=== PATIENT | female | born 1970 | race Caucasian/White ===

== ENCOUNTER 2018-04-03 12:10 | Emergency (ER) | payer OTHER, SELFPAY ==
[2018-04-03 12:11] VITALS: BP 141/103; PULSE 92; RESP 18; TEMP 37; O2SAT 100; BMI 29.5
[2018-04-03 12:23] VITALS: O2SAT 99
--- NOTE | 2018-04-03 12:48 | EKG12_ITS ---
Test Reason : CP Blood Pressure : / mmHG Vent. Rate : 097 BPM Atrial Rate : 097 BPM P-R Int : 128 ms QRS Dur : 080 ms QT Int : 372 ms P-R-T Axes : 059 055 060 degrees QTc Int : 472 ms Poor data quality, interpretation may be adversely affected Normal sinus rhythm Low voltage QRS Borderline ECG Confirmed by ANNALEE BRADY, SABIHA ([id number]), scientific editor AUGUSTA GRANADOS ([id number] on 04/05/2018 1:40:50 PM Referred By: Confirmed By:SABIHA MANTILLA MD
--- NOTE | 2018-04-03 12:57 | NURSING ---
NO LW OR POA
[2018-04-03 13:03] VITALS: PULSE 76; RESP 18
[2018-04-03] MEDS: Albuterol 2.5 MG/3 ML VIAL.NEB. INHALATION (13:03)
--- NOTE | 2018-04-03 13:20 | RAD_ITS ---
STUDY: X-RAY CHEST REASON FOR EXAM: Female, 47 years old. Shortness of breath. Anxiety. TECHNIQUE: PA and lateral views of the chest. COMPARISON: None. FINDINGS: EKG electrodes are seen. The lungs are clear and expanded. Scattered calcified granulomas. There is no demonstrated pleural abnormality. Normal size heart. Normal mediastinum and regan. Normal visualized pulmonary arteries. Normal visualized aortic arch and descending thoracic aorta. Normal visualized thoracic spine. Normal visualized ribs, clavicles, and shoulders. There is no demonstrated abnormality of the visualized soft tissue structures of the upper abdomen. RAD/Chest PA and Lateral IMPRESSION: Normal x-ray examination of the chest. Electronically Signed: Xavier Bailey MD at 13:49 EDT Tel [phone], Service support ,
[2018-04-03 13:27] LABS: Absolute Lymphocyte Count 1.79 X10^3/ul (0.83-4.51); Basophil# 0.02 X10^3/uL; Basophil% 0.4 % (0-1); Eosinophil# 0.09 X10^3/uL; Eosinophils% 1.7 % (0-5); Hematocrit 40.3 % (37-47); Hemoglobin 13.7 g/dl (12.0-15.0); Lymphocyte # 1.79 X10^3/ul (4.0); Lymphocyte % 33.8 % (19-41); Mean Corpuscular Volume 88.2 fL (81-99); Mean Platelet Vol. 11.4 fl (6.2-12.0); Monocyte# 0.39 X10^3/uL; Monocyte% 7.4 % (0-10); Neutrophil % 56.5 % (47-70); Platelet Count 214 K/mm3 (150-450); RBC Distribution Width CV 13.2 % (11.6-14.6); RBC Distribution Width SD 42.6 fl (35.1-43.9); Red Blood Count 4.57 M/mm3 (4.2-5.4); White Blood Count 5.3 K/mm3 (4.4-11.0)
[2018-04-03 13:30] LABS: POSITIVE COUNT NO; POSITIVE DIFFERENTIAL NO; POSITIVE MORPHOLOGY NO
[2018-04-03] MEDS: 0.9% Normal Saline 1,000 ML 999 ML IV (13:49)
[2018-04-03 14:01] LABS: D-Dimer Quantitative (DVT/PE) 0.36 FEU/ug/m (0.27-0.49)
[2018-04-03 14:03] LABS: Anion Gap 9 (5-15); BUN 10 mg/dL (7-18); BUN/Creat Ratio 12.8 RATIO (10-20); Calcium,Total 8.8 mg/dL (8.5-10.1); Chloride 106 mmol/L (98-107); Creatinine, Serum 0.78 mg/dL (0.55-1.02); EST Glomerular Filtration Rate 83 mL/min (>60); Est Glom Filt Rate - Afr Amer 101 mL/min (>60); Glucose 95 mg/dL (74-106); Potassium 3.6 mmol/L (3.5-5.1); Sodium Level 140 mmol/L (136-145)
[2018-04-03 14:15] VITALS: PULSE 75; RESP 12; O2SAT 99
[2018-04-03] MEDS: LORazepam 2 MG/ML Syringe 0.5 MG IV (14:38)
--- NOTE | 2018-04-03 14:58 | ED.VISSUMM ---
- ER Visit Summary Date of Service: 04/03/18 Chief Complaint: Shortness of breath History of Present Illness: The patient is a 47 F who states that she had a headache last night and then she could not catch her breath then her chest started to get heavy and then her legs were aching. She felt very panicky today she went to her doctor's office and was sent here. She does note some nasal drainage. She is a smoker. She notes chronic paresthesias of the bilateral hands and legs. Physical Examination: Afebrile vital signs are stable Gen: Well-nourished well-developed Head: Normocephalic atraumatic Eyes: Perrl EOMI ENT: TMs clear no rhinorrhea moist mucous membranes Neck: Supple no lymphadenopathy no JVD nontender CVS: Regular rate rhythm no murmurs normal S1-S2 Respiratory: No distress clear to auscultation bilaterally chest nontender Abdomen: Soft nontender nondistended normal bowel sounds no masses Back: Nontender Extremity: Nontender no edema Skin: Normal color no rash Neuro: alert orientated ?3 CN II-XII intact normal strength sensation reflexes gait cerebellar Psych: Anxious Test Results: EKG sinus rhythm at a rate of 97. CBC chemistries troponin negative. D-dimer 0.36. Chest x-ray negative. Emergency Department Course and Treatment: Patient received an albuterol aerosol. This did not really help her. She also received Ativan which did. His most likely anxiety. She will follow-up with her doctor. Impression: 1. Dyspnea 2. Anxiety This note was generated with [employer] dictation software. It may contain incorrect words, spelling, and punctuation that were not noted in review of the chart prior to signing ED Disposition - Plan for ED Patient: Disposition: Home or Assisted Living Chief Complaint: Shortness of Breath Instructions: Understanding Generalized Anxiety Disorder (LUISITO), ED Dyspnea Shortness of Breath Referrals: Gabriela Whiteside MD [Primary Care Provider] - 1 Week
[2018-04-03 15:16] VITALS: BP 116/64; PULSE 76; RESP 16; O2SAT 99
--- NOTE | 2018-04-03 15:17 | ED.RN ---
REVIEWED D/C INSTRUCTIONS, FOLLOW UP CARE, AND S/S THAT WOULD WARRANT A RETURN TO THE ED WITH PT. PT VERBALIZED AN UNDERSTANDING AND DENIES FURTHER QUESTIONS FOR THIS RN. PT SKIN P/W/D, RESP EVEN AND UNLABORED, PT A&O X 3, NO DISTRESS NOTED. PT AMBULATED OUT OF ED, GAIT STEADY.
--- NOTE | 2018-04-04 16:09 | CM.ED ---
ED CALLBACK: Follow-up call placed to patient. Patient states that she is feeling completely better today. Patient states, Everyone was very helpful there. She denies needs, questions, concerns.
== END 2018-04-03 15:18 | disposition home or self-care (01) ==
PROVIDERS: Emergency Provider Emergency Medicine; Family Provider Internal Medicine; PCP Internal Medicine
DX: R06.00 Dyspnea, unspecified (principal); F41.9 Anxiety disorder, unspecified; F17.200 Nicotine dependence, unspecified, uncomplicated
CPT/HCPCS: 71046; 80048; 84484; 85025; 85379; 93005; 94640; 96361; 96374; 99285; J7030; A4216

== ENCOUNTER 2022-04-09 00:46 | Emergency (ER) | payer OTHER, SELFPAY ==
[2022-04-09 00:47] VITALS: BP 141/118; PULSE 80; RESP 18; TEMP 36.1; O2SAT 99; BMI 32.3
--- NOTE | 2022-04-09 00:56 | CT_ITS ---
STUDY: CT BRAIN WITHOUT CONTRAST REASON FOR EXAM: Female, 51 years old. Head injury RADIATION DOSAGE (If Supplied By Facility): CTDIvol = ( 44.99 ) mGy, DLP = ( 812.98 ) mGycm TECHNIQUE: Transaxial CT imaging of the brain was performed without administration of intravenous contrast material. Individualized dose optimization techniques were used for this CT. COMPARISON: No relevant priors. FINDINGS: Posterior right scalp laceration, hematoma, and small soft tissue gas. Normal calvarium. Normal size ventricles and extra-axial spaces for the patient''s age. Normal white matter tracts of the cerebral hemispheres. Normal basal ganglia and thalami. Normal brainstem. Normal cerebellum. There is no intracranial hemorrhage. There are no findings of an acute ischemic infarction. Normal visualized paranasal sinuses. CT/Brain/Head without Contrast IMPRESSION: No acute abnormal intracranial finding. Posterior right scalp laceration. Electronically Signed: Keshav Capellan MD at 1:50 EDT ,
--- NOTE | 2022-04-09 00:57 | EX.ED.DYSGE1 ---
HPI History of Present Illness Chief Complaint: Head Injury Detail of Chief Complaint: Syncope and scalp laceration Informant: patient Narrative Narrative: Patient presents to the emergency department after syncopal episode this evening. Patient states that she had abdominal cramping and went to sit on the toilet. Patient recalls being sweaty and clammy. She got up and splashed some water on her face and then walked to the laundry room and passed out. Patient did hit the back of her head on a post that was covered in blood. Patient not on blood thinners. Her abdominal discomfort is now resolved. Patient complains of a headache. Unsure of her last tetanus. PFSH PFS Medical History no medical history Home Medications citalopram 40 mg tablet 20 mg PO DAILY 04/03/18 [History Last Taken Unknown] hydroxyzine HCl 10 mg tablet 25 mg PO DAILY 04/03/18 [History Last Taken Unknown] lisinopril 5 mg tablet 5 tab PO DAILY 04/03/18 [History Last Taken Unknown] lorazepam 1 mg tablet 1 mg PO BID PRN Anxiety 04/03/18 [History Last Taken Unknown] Allergy/AdvReac Type Severity Reaction Status Date / Time No Known Allergies Allergy Verified 04/09/22 00:49 Social History (Updated 06/14/19 @ 12:53 by Renny SINGH, SAMANTHA) Smoking Status: Current some day smoker tobacco type: cigarettes ROS ROS ED ROS Narrative Syncope Review of Systems ROS Unobtainable: other Constitutional Constitutional ED: Reports lethargy; Denies chills, fever(s), sweats or weight loss Eyes Eyes: Denies blurry vision, change in vision or diplopia ENT ENT ED: Reports other Details: Scalp laceration ; Denies rhinorrhea or sore throat Cardiovascular Cardiovascular: Reports chest pain and racing heartbeat; Denies orthopnea Respiratory/Chest Respiratory/Chest: Reports dyspnea and dyspnea on exertion; Denies cough, orthopnea or sputum Gastrointestinal Gastrointestinal: Denies abdominal pain, diarrhea, nausea or vomiting Genitourinary Genitourinary ED: Denies dysuria, hematuria or urinary frequency Musculoskeletal Musculoskeletal: Denies arthralgias, back pain, myalgias or neck pain Integumentary Denies abscess, Abrasions or rash Neurologic Neurologic: Denies headache(s) or weakness Psychiatric Psychiatric: Denies anxiety, depression or suicidal thoughts Endocrine Endocrinology: Denies polydipsia, polyphagia or polyuria Hematologic/Lymphatic Hematologic/Lymphatic: Denies easy bleeding, easy bruising or lymphadenopathy Allergic/Immunologic Allergic/Immunologic ED: Denies mouth swelling, tongue swelling or urticaria EXAM Physical Exam Const Vital Signs: 04/09/22 00:47 04/09/22 00:59 Temperature 97.0 F L Temperature Source Temporal Pulse Rate 80 Respiratory Rate 18 Respiratory Effort Normal Blood Pressure 141/118 H Blood Pressure Mean 125 Pulse Ox 99 Oxygen Delivery Method Room Air Positive well nourished and well developed General Appearance ED: well developed and NAD HEENT Reports TM's clear and moist mucous membranes HEENT Narrative: Patient is a 3 cm laceration posterior occiput. No bony step-offs. normocephalic and atraumatic; Negative for trauma or tenderness Tympanic Membrane ED: Yes TM's clear Eyes PERRL and EOMs intact bilaterally General Eye ED: Negative for pale conjunctiva or scleral icterus Neck no lymphadenopathy, supple and no JVD Neck Narrative: Mild diffuse tenderness palpation over the C-spine General: tenderness Chest Wall inspection of chest normal and palpation of chest normal Chest: Negative for tenderness Resp normal respiratory effort and clear to auscultation bilaterally Effort and Inspection: Negative for respiratory distress or pain with movement Auscultation: Negative for rhonchi, wheezes or diminished lung sounds Cardio regular rate, regular rhythm, S1 normal heart sound, S2 normal heart sound and no murmurs Peripheral Pulses: pulses 2+ throughout GI normal to inspection, nondistended, normoactive bowel sounds, soft to palpation, non-tender, non-distended and no masses Back/Spine no CVA tenderness and no thoracic nor lumbar tenderness Extremity normal to inspection General Extremety ED: Negative for edema General Extremity: Negative for edema Neuro oriented x3, CN's II-XII intact bilaterally, no sensory deficits noted and gait normal Sensorium / Orientation: awake, alert, oriented to person, oriented to place and oriented to time Motor Exam: strength 5/5 throughout and strength abnormal Psych mental status grossly normal Skin no rashes or lesions noted and no wounds MDM MDM MDM Narrative Medical decision making narrative: Patient had an IV line established. EKG obtained was unremarkable. Lab work was normal. CT scan of the brain without contrast showed no evidence of intracranial hemorrhage or skull fracture. Three-view x-rays of the C-spine interpreted by myself as no acute fractures. Official from radiology pending. At this point I suspect patient likely had a vasovagal syncope. Patient had suture repair of her scalp laceration. She is advised to follow-up with primary care physician in 10 days for suture removal. Lab Data Attestation: I reviewed the patient's lab results. Labs: Laboratory Results - last 24 hr 04/09/22 04/09/22 01:19 01:19 WBC 8.2 RBC 4.52 Hgb 13.6 Hct 40.0 MCV 88.5 MCH 30.1 MCHC 34.0 RDW Std Deviation 41.2 RDW Coeff of Alicia 12.8 Plt Count 206 MPV 11.0 Immature Gran % (Auto) 0.500 Neut % (Auto) 62.4 Lymph % (Auto) 29.4 Pepin % (Auto) 6.0 Eos % (Auto) 1.3 Baso % (Auto) 0.4 Absolute Neuts (auto) 5.1 Absolute Lymphs (auto) 2.41 Nucleated RBC % 0 Sodium 139 Potassium 3.5 Chloride 105 Carbon Dioxide 27.0 Anion Gap 7 BUN 12 Creatinine 0.90 Estim Creat Clear Calc 54.55 Est GFR (MDRD) Af Amer 85 Est GFR (MDRD) Non-Af 70 BUN/Creatinine Ratio 13.4 Glucose 131 H Calcium 8.9 Radiography Diagnostic Testing: Clinical Impression(s) from Imaging Studies Brain CT 04/09/22 00:56 IMPRESSION: No acute abnormal intracranial finding. Posterior right scalp laceration. Electronically Signed: Keshav Capellan MD at 1:50 EDT Reading Location ID and State: [facility] / [place] Tel , Service support , Three-view x-rays of cervical spine obtained interpreted by myself as no acute fractures or dislocations. EKG Initial EKG: Attestation: I personally reviewed and interpreted this EKG as follows: Comments: Sinus rhythm with ventricular rate of 81 bpm with no acute ST segment changes Procedures Lacerations Scalp laceration: Length: 1.18 in Depth: Sub Q Shape: Linear Prep: Sterile Conditions and Shure-Clens Laceration repair: Irrigated, Lidocaine with epi and Local Irrigated (ml): 50 Number of Sutures/[place]: 3 Suture Information: Ethilon, Simple and 4-0 Discharge Plan Triage Chief Complaint: Head Injury ED Provider: Audrey Stacy Dx/Rx/DC Orders Clinical Impression: Vasovagal syncope, Closed head injury, Scalp laceration Instructions: ED Head Injury (Adult), ED Laceration Scalp Stitches or [place], ED Fainting, Vagal Reaction Prescriptions: No Action citalopram 40 MG tablet 20 mg PO DAILY Label Comments: Take 1 tablet by mouth once daily. lisinopril 5 MG tablet 5 tab PO DAILY Label Comments: lorazepam 1 MG tablet 1 mg PO BID PRN (Reason: Anxiety) Label Comments: TAKE 1 TABLET DAILY AT BEDTIME and may take an extra ONE-HALF to wholepill NEEDED FOR ANXIETY attacks hydroxyzine HCl 10 MG tablet 25 mg PO DAILY Primary Care Provider: Gabriela Whiteside Referrals: Gabriela Whiteside MD [Primary Care Provider] - 10 Day for suture removal Disposition Disposition: Home, Self Care
--- NOTE | 2022-04-09 00:58 | EKG12_ITS ---
Test Reason : DYSRHYTHMIA Blood Pressure : / mmHG Vent. Rate : 081 BPM Atrial Rate : 081 BPM P-R Int : 150 ms QRS Dur : 080 ms QT Int : 382 ms P-R-T Axes : 063 066 061 degrees QTc Int : 443 ms Normal sinus rhythm Normal ECG Confirmed by ANNALEE BRADY, SABIHA ([id number]), film and video editor MALAIKA HURLEY ([id number]) on 04/11/2022 11:34:10 AM Referred By: AVELINO Confirmed By:SABIHA MANTILLA MD
[2022-04-09] MEDS: Diphth,Pertuss(Acell),Tet Vac 0.5 ML Vial IM (01:05)
[2022-04-09] MEDS: Lidocaine 1% /Epi 1:100 (20ml) 20 ML Vial 8 ML INFILT (01:07)
[2022-04-09 01:25] LABS: Absolute Lymphocyte Count 2.41 X10^3/uL (0.83-4.51); Absolute Neutrophil Count 5.1 X10^3/uL (2.0-7.7); Basophil# 0.03 X10^3/uL; Basophil% 0.4 % (0-1); Eosinophil# 0.11 X10^3/uL; Eosinophils% 1.3 % (0-5); Hemoglobin 13.6 g/dL (12.0-15.0); Lymphocyte # 2.41 X10^3/ul (0.83-4.51); Lymphocyte % 29.4 % (19-41); Mean Corpuscular Hgb 30.1 pg (27.0-32.0); Mean Corpuscular Volume 88.5 fL (81-99); Monocyte# 0.49 X10^3/uL; NRBC Flagged by Analyzer 0 % (0-5); Neutrophil # 5.11 X10^3/uL (2.7-7.7); Neutrophil % 62.4 % (47-70); Platelet Count 206 K/mm3 (150-450); RBC Distribution Width CV 12.8 % (11.6-14.6); RBC Distribution Width SD 41.2 fl (35.1-43.9); Red Blood Count 4.52 M/mm3 (4.2-5.4); White Blood Count 8.2 K/mm3 (4.4-11.0)
[2022-04-09] MEDS: 0.9% Normal Saline 1,000 ML 150 ML IV (01:27)
--- NOTE | 2022-04-09 01:37 | RAD_ITS ---
INDICATION: Status post fall, hit head, laceration to posterior scalp. EXAMINATION/TECHNIQUE: X-RAY - XR Spine Cervical 2 or 3 Views: AP, lateral and open-mouth odontoid views COMPARISON: None. FINDINGS: VERTEBRAE: Preserved vertebral body heights. No fracture or suspicious osseous lesion demonstrated. No spondylolisthesis. Straightening of cervical lordosis likely chronic and/or positional in nature. Small endplate osteophytes lower cervical spine. DISCS: Mild degenerative disc space narrowing at C5-6. NECK SOFT TISSUES: No prevertebral soft tissue widening. LUNG APICES: Clear. RAD/Cerv Spine 2 or 3 Views IMPRESSION: No evidence of acute cervical spinal injury. Electronically Signed: Hever Hussein MD at 2:10 EDT ,
[2022-04-09 01:52] LABS: Anion Gap 7 (5-15); BUN 12 mg/dL (7-18); BUN/Creat Ratio 13.4 RATIO (10-20); Calcium,Total 8.9 mg/dL (8.5-10.1); Chloride 105 mmol/L (98-107); EST Glomerular Filtration Rate 70 mL/min (>60); Est Glom Filt Rate - Afr Amer 85 mL/min (>60); Estimated Creatinine Clearance 54.55 ml/min; Glucose 131 mg/dL (74-106); Potassium 3.5 mmol/L (3.5-5.1); Sodium Level 139 mmol/L (136-145)
[2022-04-09 02:07] VITALS: BP 110/55; BP 124/70; BP 140/74; PULSE 79; PULSE 86; PULSE 87
== END 2022-04-09 02:20 | disposition home or self-care (01) ==
PROVIDERS: Emergency Provider Emergency Medicine; PCP Internal Medicine; Visit Provider Emergency Medicine
DX: R55 Syncope and collapse (principal); S01.01XA Laceration without foreign body of scalp, initial encounter; F17.210 Nicotine dependence, cigarettes, uncomplicated; Z23 Encounter for immunization; X58.XXXA Exposure to other specified factors, initial encounter
CPT/HCPCS: 12001; 70450; 72040; 80048; 85025; 90471; 90715; 93005; 99284; J7030; A4216